=== PATIENT | female | born 1960 | race Caucasian/White ===

== ENCOUNTER 2023-12-04 13:16 | Emergency (ER) | payer SELFPAY ==
[2023-12-04 13:36] VITALS: BP 169/62; PULSE 57; RESP 16; TEMP 36.2; O2SAT 100; BMI 21.9
--- NOTE | 2023-12-04 13:41 | DI.RAD.S_ITS ---
PROCEDURE: XR SHOULDER LT MIN 2V INDICATIONS: fall/ pain TECHNIQUE: Two views of the shoulder were acquired. COMPARISON: None. FINDINGS: Bones: Anterior and inferior glenohumeral joint dislocation. No visible fractures. No shoulder separation. Visible rib arcs remain intact. Soft tissues: No suspicious soft tissue calcifications. IMPRESSION: Anterior inferior glenohumeral joint dislocation. Dictated by: Keli Alegre M.D. on 12/04/2023 at 15:35 Approved by: Keli Alegre M.D. on 12/04/2023 at 15:36
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
--- NOTE | 2023-12-04 17:39 | PC.NURSE ---
Pt wanting to leave the ER after being reduced by EMD Mank. Pt refusing any further treatment and refusing vitals. Pt signing AMA paperwork after an explanations.
== END 2023-12-04 17:47 | disposition left against medical advice (07) ==
PROVIDERS: Emergency Provider Emergency Medicine
DX: S43.015A Anterior dislocation of left humerus, initial encounter (principal); W18.30XA Fall on same level, unspecified, initial encounter; Y92.814 Boat as the place of occurrence of the external cause
CPT/HCPCS: 23650; 36415; 73030; 99283